=== PATIENT | male | born 1950 | race Caucasian/White ===

== ENCOUNTER 2019-02-24 09:02 | Day surgery (SDC) | payer OTHER ==
[2019-02-19 18:15] VITALS: BMI 33.3
[2019-02-24 09:20] VITALS: TEMP 98.2
[2019-02-24] MEDS ORDERED: PROPOFOL 20 ML ONE ×2 (10:19)
[2019-02-24 11:14] VITALS: BP 149/90; PULSE 86
== END 2019-02-24 11:20 | disposition home or self-care (01) ==
LOC: FASU-ENDO 09:02
PROVIDERS: ATTEND Internal Medicine Gastroenterology
PROC: 0DJD8ZZ Inspection of Lower Intestinal Tract, Via Natural or Artificial Opening Endoscopic (ICD-10-PCS; principal; 2019-02-24 10:22)
DX: Z86.010 Personal history of colon polyps (principal); K57.30 Diverticulosis of large intestine without perforation or abscess without bleeding